=== PATIENT | female | born 1995 | race Caucasian/White ===

== ENCOUNTER 2018-07-02 08:05 | Inpatient (IN) | payer OTHER ==
[~2018-07-02] VITALS: Ht 162 cm; Wt 70.7 kg
[2018-07-02] MEDS ORDERED: OXYTOCIN 30 UNITS/LACT RINGERS 500 ML IV ONE (08:43)
[2018-07-02] MEDS ORDERED: RINGERS SOLUTION,LACTATED 1,000 ML IV SCH (08:43)
[2018-07-02] MEDS ORDERED: RINGERS SOLUTION,LACTATED 1,000 ML IV PRN (08:43)
[2018-07-02] MEDS ORDERED: METOCLOPRAMIDE HCL 5 MG/ML 2 ML VIAL IVP PRN (08:45)
[2018-07-02] MEDS ORDERED: CITRIC ACID/SODIUM CITRATE 30 ML SOLUTION UDCUP PO PRN (08:45)
[2018-07-02] MEDS ORDERED: OXYTOCIN 30 UNITS/LACT RINGERS 500 ML IV PRN (08:53)
[2018-07-02 09:29] LABS: BASOPHILS % (AUTO) 0.4 % (0.0-2.0); EOSINOPHILS % (AUTO) 0.8 % (1.0-6.0); HEMATOCRIT 37.8 % (36-46); HEMOGLOBIN 12.5 g/dL (12.0-16.0); LYMPHOCYTES # (AUTO) 1.7 K/uL (1.0-4.8); MEAN CORPUSCULAR HEMOGLOBIN 29.9 pg (26.0-34.0); MEAN CORPUSCULAR HGB CONC 33.1 G/dL (31.0-37.0); MEAN CORPUSCULAR VOLUME 90 fL (80-100); MONOCYTES # (AUTO) 0.5 K/uL (0.1-1.0); NEUTROPHILS # (AUTO) 10.7 K/uL (1.8-7.7); NEUTROPHILS % (AUTO) 81.8 % (40.0-70.0); PLATELET COUNT (AUTO)-OB 189 K/uL (150-450); RED BLOOD CELL COUNT(AUTO) 4.18 MIL/uL (4.00-5.20); RED CELL DISTRIBUTION WIDTH 13.2 % (11.5-14.5)
[2018-07-02] MEDS ORDERED: LIDOCAINE/PF 1% 30 ML VIAL ONE (12:34)
[2018-07-02] MEDS ORDERED: MAGNESIUM HYDROXIDE SUSPENSION 30 ML UDCUP PO PRN (13:00)
[2018-07-02] MEDS ORDERED: GLYCERIN/WITCH HAZEL LEAF 40 PADS JAR TP PRN (13:00)
[2018-07-02] MEDS ORDERED: SENNA/DOCUSATE SODIUM 8.6-50 MG TABLET PO PRN (13:00)
[2018-07-02] MEDS ORDERED: BENZOCAINE 20%/MENTHOL 56 GM SPRAY CANISTER TP PRN (13:00)
[2018-07-02] MEDS ORDERED: LANOLIN 7 GM OINTMENT TP PRN (13:00)
[2018-07-02] MEDS ORDERED: OxyCODONE HCL/ACETAMINOPHEN 5-325 MG TABLET PO PRN ×2 (13:00)
[2018-07-02] MEDS ORDERED: METHYLERGONOVINE MALEATE 0.2 MG TABLET PO PRN (13:00)
[2018-07-02] MEDS ORDERED: LIDOCAINE/PF 1% 30 ML VIAL INJ ONE (13:30)
[2018-07-02] MEDS: IBUPROFEN 800 MG TABLET PO PRN (18:39)
[2018-07-02 18:59] VITALS: BP 112/70
[2018-07-02] MEDS ORDERED: PNEUMOCOCCAL VACCINE POLYVALENT 0.5 ML VIAL [PPSV23] IM ONE (19:00)
[2018-07-02] MEDS ORDERED: OXYGEN THERAPY IH SCH (20:00)
[2018-07-03] MEDS: IBUPROFEN 800 MG TABLET PO PRN ×2 (02:11→09:06)
[2018-07-03 07:40] LABS: BASOPHILS % (AUTO) 0.3 % (0.0-2.0); HEMATOCRIT 32.6 % (36-46); HEMOGLOBIN 10.8 g/dL (12.0-16.0); LYMPHOCYTES # (AUTO) 2.1 K/uL (1.0-4.8); LYMPHOCYTES % (AUTO) 17.3 % (22.0-44.0); MEAN CORPUSCULAR HEMOGLOBIN 30.1 pg (26.0-34.0); MEAN CORPUSCULAR HGB CONC 33.1 G/dL (31.0-37.0); MEAN CORPUSCULAR VOLUME 91 fL (80-100); MONOCYTES # (AUTO) 0.7 K/uL (0.1-1.0); MONOCYTES % (AUTO) 5.4 % (2.0-9.0); NEUTROPHILS # (AUTO) 9.4 K/uL (1.8-7.7); PLATELET COUNT (AUTO)-OB 170 K/uL (150-450); RED BLOOD CELL COUNT(AUTO) 3.59 MIL/uL (4.00-5.20); RED CELL DISTRIBUTION WIDTH 13.1 % (11.5-14.5)
[2018-07-03] MEDS ORDERED: DSS100 PO (13:17)
[2018-07-03] MEDS ORDERED: IBUP-2071 PO (13:17)
[2018-07-03] MEDS ORDERED: FERR-82 PO (13:19)
== END 2018-07-03 14:20 | disposition home or self-care (01) | DRG 807 ==
LOC: OBSVTOIN 08:05 → 4S 08:05
PROVIDERS: ADMIT Specialist; ATTEND Specialist
PROC: 10E0XZZ Delivery of Products of Conception, External Approach (ICD-10-PCS; principal; 2018-07-02)
PROC: 0HQ9XZZ Repair Perineum Skin, External Approach (ICD-10-PCS; 2018-07-02)
DX: O70.0 First degree perineal laceration during delivery (principal); Z37.0 Single live birth; Z3A.39 39 weeks gestation of pregnancy
CPT/HCPCS: 86850; 86900; 86901; J2590; J3490; J7120